=== PATIENT | female | born 1980 | race African-American/Black ===

== ENCOUNTER 2017-06-10 15:04 | Emergency (ER) | payer OTHER ==
[~2017-06-10] VITALS: Ht 149.9 cm; Wt 69.7 kg
[2017-06-10] MEDS ORDERED: TYLENOL WITH C1 EACH PO (17:26)
[2017-06-10] MEDS ORDERED: PEN-VEE K,VEET500 MG PO (17:26)
[2017-06-10 17:57] VITALS: BP 130/78
== END 2017-06-10 18:00 | disposition home or self-care (01) ==
LOC: EME 15:04
PROC: 3E0T3BZ Introduction of Anesthetic Agent into Peripheral Nerves and Plexi, Percutaneous Approach (ICD-10-PCS; principal; 2017-06-10)
DX: K08.89 Other specified disorders of teeth and supporting structures (principal); F17.200 Nicotine dependence, unspecified, uncomplicated; Z88.8 Allergy status to other drugs, medicaments and biological substances
CPT/HCPCS: 99281; 99284; S0020